=== PATIENT | female | born 1940 | race Caucasian/White ===

== ENCOUNTER → 2018-03-27 | Outpatient (CLI) | payer MEDICARE ==
--- NOTE | 2018-03-27 14:07 | Diagnostic Imaging Report ---
PROCEDURE: CT head without contrast. TECHNIQUE: Multiple contiguous axial images were obtained through the brain without the use of intravenous contrast. INDICATION: Head injury with resultant paresthesia. FINDINGS: Ventricles and sulci are within normal limits for size. There is no evidence of hemorrhage. There is no abnormal mass effect or shift of midline structures. There is peripheral calcification which may be extra-axial in the left occipital region. The calvarium is intact and the visualized paranasal sinuses are clear. Note is made of additional scalp calcification in the right frontal region. IMPRESSION: No CT evidence of acute intracranial abnormality. Left occipital region and right frontal scalp region calcifications. These could be on the basis of previous infection. Clinical correlation would be of use. Dictated by: Dictated on workstation # [id number]
== END ==
LOC: RAD 13:30
PROVIDERS: ATTEND Nurse Practitioner
DX: S09.90XA Unspecified injury of head, initial encounter (principal); W22.8XXA Striking against or struck by other objects, initial encounter
CPT/HCPCS: 70450

== ENCOUNTER 2021-04-27 13:23 | Outpatient (RCR) | payer MEDICARE | END 2021-04-27 15:33 | disposition home or self-care (01) | PROVIDERS: ATTEND Internal Medicine | DX: M54.9 Dorsalgia, unspecified (principal); M25.511 Pain in right shoulder; R32 Unspecified urinary incontinence; I10 Essential (primary) hypertension; M19.90 Unspecified osteoarthritis, unspecified site; F32.9 Major depressive disorder, single episode, unspecified; Z96.653 Presence of artificial knee joint, bilateral ==

== ENCOUNTER → 2021-10-08 | Outpatient (CLI) | payer MEDICARE ==
[~2021-10-08] MED LIST: CATHETER FLUSH 10 ML SYR IV PRN; IOHEXOL 350 MG/ML 100 ML (OMNIPAQUE 350) VIAL IV ONE; NS 100 ML (IVPB) BAG IV ONE
--- NOTE | 2021-10-08 15:31 | Diagnostic Imaging Report ---
EXAMINATION: CT abdomen and pelvis with intravenous contrast. TECHNIQUE: Multiple contiguous axial images were obtained through the abdomen and pelvis after the uneventful administration of intravenous contrast. All CT scans use one or more of the following dose optimizing techniques: automated exposure control, MA and/or KvP adjustment based on patient size and exam type or iterative reconstruction. HISTORY: ABD PAIN COMPARISON: None available. FINDINGS: Lung bases: Bibasilar dependent atelectasis. Solid organs: The liver is normal without focal lesion. The gallbladder is normal. There is no biliary ductal dilation. Pancreas is normal. Spleen is normal. Adrenal glands are normal. The kidneys are normal without hydronephrosis. Bowel: The stomach and small bowel are normal without obstruction. There is scattered colonic diverticulosis. Wall thickening and inflammatory stranding seen within the sigmoid colon. Peritoneum: Trace fluid with foci of air seen within the fat adjacent to the sigmoid colon. No loculated fluid collection is seen. No suspicious lymphadenopathy. Vasculature: Calcification of the aorta without aneurysm. Musculoskeletal: No suspicious osseous lesion or compression fracture. Pelvis: The uterus is surgically absent. No adnexal mass. The urinary bladder is normal. IMPRESSION: 1. Findings concerning for acute perforated sigmoid diverticulitis. No abscess. Called to [facility] at 3:30 p.m. by cvb. Dictated by: Dictated on workstation # [id number]
== END ==
LOC: RAD 14:15
PROVIDERS: ATTEND Internal Medicine
DX: R10.9 Unspecified abdominal pain (principal); R11.2 Nausea with vomiting, unspecified
CPT/HCPCS: 74177